=== PATIENT | male | born 1980 | race Two or more races ===

== ENCOUNTER 2016-12-29 20:43 | Emergency (ER) | payer SELFPAY ==
[~2016-12-29] VITALS: Ht 167.6 cm; Wt 79.4 kg
[2016-12-29 21:19] VITALS: BP 123/74
[2016-12-29] MEDS ORDERED: IBUP-1007 PO (22:59)
[2016-12-29] MEDS ORDERED: OXYC-323 PO (22:59)
[2016-12-29] MEDS ORDERED: HYDROmorphone 2 MG/ML VIAL IV ONE (23:00)
[2016-12-29] MEDS ORDERED: IBUPROFEN 600 MG TABLET. PO ONE (23:00)
[2016-12-29] MEDS ORDERED: ONDANSETRON ODT 4 MG TAB.RAPDIS. PO ONE (23:00)
--- NOTE | 2016-12-29 23:00 | PHYS DOC ---
Past Medical History Past Medical History: No Pertinent History Past Surgical History: No Surgical History Alcohol Use: Rarely Drug Use: None Adult General Chief Complaint Chief Complaint: KNEE INJURY HPI HPI Patient is a 36 year old gentleman who presents here today secondary to right knee pain. Patient reports injury occurred while he was at work. Patient reports that around 3 PM while working overstress his right knee and he felt a pop. Patient reports he been able walk on it however has been having a lot of pain and discomfort. Patient reports he has greatest pain over the medial aspect of his knee. Patient denies any hypertension diabetes liver longer kidney problems. Patient has not had any abdominal surgeries in the past. Patient is not allergic to medications. Patient does not smoke or do any drugs. Patient's physical exam was significant for tenderness palpation right knee. Patient has a large knee effusion. The patella is ballotable. Patient has no ligamentous laxity however exam was limited secondary to the discomfort that the patient was experiencing. Patient is otherwise neurovascularly intact. Patient has 2+ dorsalis pedis and posterior tibialis pulses that are equal bilaterally. Patient had an x-ray of his knee which revealed no acute fracture. There does appear to be an effusion there. Patient was given a milligram of Dilaudid to assist with the pain. Assessment and plan is a 36-year-old gentleman who sustained a work-related knee injury that's most likely ligamentous in nature. It was difficult to assess him fully and ER secondary to the effusion and the pain that he was having. The x-ray that we obtained did not reveal any fracture. The plan for this patient will be to discharge him to home with adequate pain medicines and a knee immobilizer. Patient was given crutches to assist him with ambulation. Patient was instructed that he will need to follow-up with his employer's Workmen's Comp. physician which she has the name and address of. I recommended that he rested iced it up and keep it elevated. Patient was given a prescription for ibuprofen, Avenue, and Zofran to assist him with the pain and discomfort that he is having. Patient feels much more comfortable after the injection that he received here in the ED and understands the plan and he is agreement with it. Review of Systems Review of Systems Constitutional: Denies fever or chills [] Eyes: Denies change in visual acuity, redness, or eye pain [] HENT: Denies nasal congestion or sore throat [] All other review systems are negative except as documented in the history of present illness portion. Current Medications Current Medications Current Medications Medications (Trade) Dose Ordered Sig/Devin Start Time Stop Time Status Last Admin Dose Admin Hydromorphone HCl (Dilaudid) 1 mg 1X ONCE 12/29/16 23:00 12/29/16 23:01 DC 12/29/16 22:44 1 MG Ibuprofen (Motrin) 600 mg 1X ONCE 12/29/16 23:00 12/29/16 23:01 DC 12/29/16 22:44 600 MG Ondansetron HCl (Zofran Odt) 4 mg 1X ONCE 12/29/16 23:00 12/29/16 23:01 DC 12/29/16 22:44 4 MG Allergies Allergies Allergies Coded Allergies Type Severity Reaction Last Updated Verified No Known Drug Allergies 12/29/16 No Physical Exam Physical Exam Constitutional: Well developed, well nourished, no acute distress, non-toxic appearance. [] HENT: Normocephalic, atraumatic, bilateral external ears normal, oropharynx moist, no oral exudates, nose normal. [] Eyes: PERRLA, EOMI, conjunctiva normal, no discharge. [] Neck: Normal range of motion, no tenderness, supple, no stridor. [] Cardiovascular:Heart rate regular rhythm, no murmur [] Lungs & Thorax: Bilateral breath sounds clear to auscultation [] Abdomen: Bowel sounds normal, soft, no tenderness, no masses, no pulsatile masses. [] Skin: Warm, dry, no erythema, no rash. [] Back: No tenderness, no CVA tenderness. [] Extremities: See above. Neurologic: Alert and oriented X 3, normal motor function, normal sensory function, no focal deficits noted. [] Psychologic: Affect normal, judgement normal, mood normal. [] Current Patient Data Vital Signs Vital Signs Date Time Temp Pulse Resp B/P (MAP) Pulse Ox O2 Delivery O2 Flow Rate FiO2 12/29/16 22:44 18 Room Air 12/29/16 21:19 98.2 70 96 98.2 EKG EKG [] Radiology/Procedures Radiology/Procedures [] Course & Med Decision Making Course & Med Decision Making Pertinent Labs and Imaging studies reviewed. (See chart for details) [] Dragon Disclaimer Dragon Disclaimer This electronic medical record was generated, in whole or in part, using a voice recognition dictation system. Departure Departure Impression: Primary Impression: Injury of knee, ligament Disposition: 01 HOME, SELF-CARE Condition: IMPROVED Referrals: NO PCP (PCP) Patient Instructions: Crutch Use, Knee - Cartilage (Meniscus) Injury, Knee Effusion, Knee Pain Additional Instructions: Please follow up with her workman's comp doctor in the morning. Rest elevate and ice your knee. Scripts Oxycodone/Apap 5-325 (PERCOCET 5-325 MG TABLET) 1 Each Tablet 1 TAB PO Q6-8HRS Y for PAIN, #20 TAB Prov: ROSENDO BAILEY MD 12/29/16 Ibuprofen (IBUPROFEN) 600 Mg Tablet 600 MG PO PRN Q6HRS Y for PAIN, #20 TAB Prov: ROSENDO BAILEY MD 12/29/16 Problem Qualifiers Primary Impression: Injury of knee, ligament Encounter type: initial encounter Laterality: right Qualified Codes: S89.91XA - Unspecified injury of right lower leg, initial encounter ROSENDO BAILEY MD December 29, 2016 23:00
--- NOTE | 2016-12-30 09:41 | RAD ---
Exam performed: 3 views right knee. Clinical indication: Knee injury status post fall today Date of Service: 12/29/16 Comparison:None available AP, oblique and lateral radiographs of the knee reveal the osseous structures to be intact and well aligned. The joint space is well-preserved. The articular margins are smooth. Evidence of calcific loose body or joint effusion is absent. Impression: Radiographically normal knee.
== END 2016-12-29 23:05 | disposition home or self-care (01) ==
LOC: ER 20:43
DX: S89.91XA Unspecified injury of right lower leg, initial encounter (principal); X58.XXXA Exposure to other specified factors, initial encounter; Y93.89 Activity, other specified; Y92.69 Other specified industrial and construction area as the place of occurrence of the external cause; Y99.8 Other external cause status
CPT/HCPCS: 73562; 96374; 99284; J1170; Q0162